=== PATIENT | female | born 1940 | race Caucasian/White ===

== ENCOUNTER 2016-12-01 11:57 | Emergency (ER) | payer MEDICARE, OTHER ==
--- NOTE | 2016-12-01 12:18 | EDM.PDOC ---
ED HPI GENERAL MEDICAL PROBLEM - General Chief Complaint: Cardiovascular Problem Stated Complaint: FAST HEARTBEAT Time Seen by Provider: 12/01/16 12:18 Source of Information: Reports: Patient History Limitations: Reports: No Limitations - History of Present Illness INITIAL COMMENTS - FREE TEXT/NARRATIVE: 76-year-old female from local intermediate sent over to the ED for evaluation of reported tachycardia. Apparently her resting heart rate was 110 this morning. In the ED the ECG showed it to be 101 in sinus and she settled well into the 90s very promptly after getting to rest. She claims that she's eating and drinking normally. No recent vomiting or pain response to elevate her heart rate. Medications are still being established that she's on but she denies any recent changes to her medicines. She denies feeling short of breath or dizzy. Onset: Today (Patient reports that she doesn't feel ill at all.) Duration: Minutes: Location: Reports: Other (Reportedly found to have an elevated heart rate at 110 per minute.) Severity: Mild Improves with: Reports: None Worsens with: Reports: None Context: Denies: Activity, Exercise, Lifting, Sick Contact, Trauma, Other - Related Data Allergies Allergy/AdvReac Type Severity Reaction Status Date / Time Sulfa (Sulfonamide Allergy Cannot Verified 12/01/16 12:09 Antibiotics) Remember Home Meds: Home Meds Acetaminophen [Tylenol] 650 mg PO QID 12/01/16 [History] Bisacodyl [Dulcolax] 10 mg PO DAILY PRN 12/01/16 [History] Capsaicin 42.5 gm TP BID 12/01/16 [History] Clotrimazole/Betamethasone Dip [Lotrisone Cream] 45 gm TP BID 12/01/16 [History] Diclofenac Sodium [Voltaren 1% Gel] 1 ampule TOP QID PRN 12/01/16 [History] Enalapril [Vasotec] 20 mg PO DAILY 12/01/16 [History] Hydrochlorothiazide 25 mg PO DAILY 12/01/16 [History] Ketoconazole [Ketoconazole 2%] 1 applic TOP DAILY 12/01/16 [History] Lactose-Reduced Food [Boost] 237 ml PO QID 12/01/16 [History] Memantine HCl [Namenda] 5 mg PO BID 12/01/16 [History] Miconazole Nitrate [Lotrimin AF] 150 gm TP BID PRN 12/01/16 [History] Potassium Chloride [Klor-Con M20] 20 meq PO DAILY 12/01/16 [History] Triamcinolone Acetonide 60 ml TP TID PRN 12/01/16 [History] Zinc Oxide 30 gm TP BID 12/01/16 [History] guaiFENesin [Tussin] 200 mg PO Q6H PRN 12/01/16 [History] Past Medical History Cardiovascular History: Reports: Hypertension Musculoskeletal History: Reports: Osteoarthritis, Osteoporosis Neurological History: Reports: Alzheimers Disease Social & Family History - Tobacco Use Smoking Status *Q: Former Smoker Years of Tobacco use: 60 Packs/Tins Daily: 1 Used Tobacco, but Quit: Yes Month Tobacco Last Used: 2 years ago - Caffeine Use Caffeine Use: Reports: Coffee - Recreational Drug Use Recreational Drug Use: No - Living Situation & Occupation Living situation: Reports: , Extended Care Facility (Lives at [facility]) Occupation: Retired ED ROS GENERAL - Review of Systems Review Of Systems: See Below Constitutional: Reports: Other (Patient doesn't really understand why she is here.). Denies: Fever, Chills, Malaise, Weakness, Fatigue, Decreased Appetite, Weight Loss HEENT: Reports: Glasses Respiratory: Denies: Shortness of Breath, Wheezing, Pleuritic Chest Pain, Cough , Sputum, Hemoptysis Cardiovascular: Reports: Blood Pressure Problem. Denies: Chest Pain, Claudication, Edema, Lightheadedness, Orthopnea (Controlled on current medications), Palpitations Endocrine: Reports: No Symptoms GI/Abdominal: Reports: Constipation (Sometimes) : Reports: Frequency Musculoskeletal: Reports: Back Pain, Joint Pain (Knees and hips at times.) Skin: Reports: No Symptoms Neurological: Reports: Confusion (Short-term memory is markedly impaired. She has underlying organic brain disease.). Denies: Trouble Speaking, Difficulty Walking, Weakness Psychiatric: Reports: Confusion (At times.) Hematologic/Lymphatic: Reports: No Symptoms Immunologic: Reports: No Symptoms ED EXAM, GENERAL - Physical Exam Exam: See Below Exam Limited By: Altered Mental Status (History obtained from her daughter primarily.) General Appearance: Alert, WD/WN ( It was quite evident within a few minutes that the patient has significant organic brain disease and doesn't understand why she is here.), No Apparent Distress Eye Exam: Bilateral Eye: Normal Inspection Throat/Mouth: Normal Inspection, Normal Lips, Normal Oropharynx, Other Head: Atraumatic, Normocephalic Neck: Normal Inspection, Supple, Non-Tender, Full Range of Motion Respiratory/Chest: No Respiratory Distress, Lungs Clear, Normal Breath Sounds, No Accessory Muscle Use Cardiovascular: Normal Peripheral Pulses, Regular Rate, Rhythm, No Edema, No Gallop, No JVD, No Murmur GI/Abdominal: Normal Bowel Sounds, Soft, Non-Tender, No Organomegaly, Other ( Slight tympany to percussion.) Back Exam: Normal Inspection, Full Range of Motion. No: CVA Tenderness (L), CVA Tenderness (R) Extremities: Normal Inspection, Normal Range of Motion, Non-Tender, No Pedal Edema Neurological: Alert, CN II-XII Intact. No: Oriented (Disoriented to time and place.) Psychiatric: Normal Affect, Normal Mood Skin Exam: Warm, Dry, Intact, Normal Color, No Rash EKG INTERPRETATION EKG Date: 12/01/16 Time: 12:10 Rhythm: other (Sinus tachycardia at 101 per minute.) Rate (beats/min): 101 [place]: normal P-wave: present QRS: normal ST-T: other (Diffuse early repolarization pattern.) QT: normal Course - Vital Signs Last Recorded V/S: Last Vital Signs Temp 36.7 C 12/01/16 12:13 Pulse 101 H 12/01/16 14:04 Resp 18 12/01/16 12:13 BP 150/87 H 12/01/16 14:04 Pulse Ox 94 L 12/01/16 12:13 Orthostatic Blood Pressure [ 140/86 Standing] Orthostatic Blood Pressure [ 157/87 Sitting] Orthostatic Blood Pressure [ 150/87 Supine] - Orders/Labs/Meds Orders: Active Orders 24 hr Category Date Time Status EKG Documentation Completion [RC] STAT Care 12/01/16 12:08 Active Orthostatic Vital Signs [RC] ASDIRECTED Care 12/01/16 12:29 Active Labs: Laboratory Tests 12/01/16 12/01/16 12/01/16 Range/Units 12:25 12:25 12:25 WBC 9.13 (3.98-10.04) K/mm3 RBC 4.45 (3.98-5.22) M/mm3 Hgb 13.8 (11.2-15.7) gm/L Hct 41.2 (34.1-44.9) % MCV 92.6 (79.4-94.8) fl MCH 31.0 (25.6-32.2) pg MCHC 33.5 (32.2-35.5) g/dl RDW Std Deviation 44.0 (36.4-46.3) fL Plt Count 363 (182-369) K/mm3 MPV 9.4 (9.4-12.3) fl Neutrophils % (Manual) 68 H (40-60) % Band Neutrophils % 0 (0-10) % Lymphocytes % (Manual) 24 (20-40) % Atypical Lymphs % 0 % Monocytes % (Manual) 7 (2-10) % Eosinophils % (Manual) 1 (0.7-5.8) % Basophils % (Manual) 0 L (0.1-1.2) Platelet Estimate Adequate RBC Morph Comment Normal Sodium 140 (136-145) mEq/L Potassium 4.4 (3.5-5.1) mEq/L Chloride 103 (98-107) mEq/L Carbon Dioxide 28 (21-32) mEq/L Anion Gap 13.4 (5-15) BUN 14 (7-18) mg/dL Creatinine 0.8 (0.55-1.02) mg/dL Est Cr Clr Drug Dosing 52.47 mL/min Estimated GFR (MDRD) > 60 (>60) mL/min BUN/Creatinine Ratio 17.5 (14-18) Glucose 97 (83-115) mg/dL Calcium 9.3 (8.5-10.1) mg/dL Magnesium 2.0 (1.8-2.4) mg/dl Total Bilirubin 0.5 (0.2-1.0) mg/dL AST 36 (15-37) U/L ALT 43 (14-59) U/L Alkaline Phosphatase 99 (46-116) U/L Total Protein 6.8 (6.4-8.2) g/dl Albumin 3.5 (3.4-5.0) g/dl Globulin 3.3 gm/dL Albumin/Globulin Ratio 1.1 (1-2) TSH 3rd Generation 0.735 (0.358-3.74) uIU/mL Meds: Medications Discontinued Medications Generic Name Dose Route Start Last Admin Trade Name Mal PRN Reason Stop Dose Admin Sodium Chloride 500 mls @ 500 mls/hr 12/01/16 12:38 12/01/16 12:43 Normal Saline IV 12/01/16 13:37 500 mls/hr .BOLUS ONE Administration - Radiology Interpretation Free Text/Narrative:: 36-year-old female presents to the ED for evaluation of resting heart rate of 110 per minute. Unsure where this came from. Heart rate here was 101 per minute. Orthostatic BPs are positive with the rate of 126/84 supine with a rate of 94 sitting BP was 117/89 with heart rate of 100 standing was 116/82 with a heart rate of 113 suggesting that she is volume depleted. Plan routine labs will be collected. IV will be normal saline with a 500 mils fluid bolus over the next hour. - Re-Assessments/Exams Free Text/Narrative Re-Assessment/Exam: 12/01/16 14:21 labs are back and essentially are normal. White count was 9.13 with 60% neutrophils and no bands hemoglobin 13.8 hematocrit 41.2 platelets 3 63 ,000. Sodium is 140 potassium is 4.4 the remainder of the electrolytes were normal as as worsening renal function and liver function TSH was 0.735. It appears that she was is mildly volume depleted didn't have precipitated a sinus tachycardia and perhaps a bit excited or anxious due to the [place] being made over her. He was however it is orthostatic and is no longer orthostatic after 500 mils of fluid IV. BP now is 150/87 with a heart rate of 102 sitting was 157/ 87. To be discharged to home or in the care of her daughter will take her back to [facility]. No changes to medications made at this time. Departure - Departure Time of Disposition: 14:14 Disposition: Home, Self-Care 01 Condition: good Clinical Impression: Volume depletion Referrals: Cain Fair MD [Primary Care Provider] - Forms: ED Department Discharge Additional Instructions: Evaluation in the emergency today in regards to discovery of a fast heartbeat. Examination revealed this to be in normal sinus rhythm at 101 per minute but apparently was tracked earlier at 110 per minute. Identified that there was evidence of orthostatic hypotension meaning that blood pressure dropped when used it up instead of normally it goes up to fight off the effect of gravity. This indicated that you're a little short of fluids and this was confirmed by lab tests but no other major abnormalities were identified on lab testing including normal thyroid function. Therefore this time no changes to medications are to be made. Tried taking a bit more fluids during the day to keep your blood pressure up. - My Orders Last 24 Hours: My Active Orders 12/01/16 12:08 EKG Documentation Completion [RC] STAT 12/01/16 12:29 Orthostatic Vital Signs [RC] ASDIRECTED - Assessment/Plan Last 24 Hours: My Active Orders 12/01/16 12:08 EKG Documentation Completion [RC] STAT 12/01/16 12:29 Orthostatic Vital Signs [RC] ASDIRECTED
[2016-12-01] MEDS ORDERED: Sodium Chloride 0.9% 500 ML IV ONE (12:38)
[2016-12-01 14:07] VITALS: BP 150/87
== END 2016-12-01 14:45 | disposition home or self-care (01) ==
LOC: JD.ED 11:57
DX: E86.9 Volume depletion, unspecified (principal); I10 Essential (primary) hypertension; M19.90 Unspecified osteoarthritis, unspecified site; G30.9 Alzheimer's disease, unspecified; F02.80 Dementia in other diseases classified elsewhere, unspecified severity, without behavioral disturbance, psychotic disturbance, mood disturbance, and anxiety; Z88.2 Allergy status to sulfonamides; Z79.899 Other long term (current) drug therapy; Z87.891 Personal history of nicotine dependence
CPT/HCPCS: 36415; 80053; 83735; 84443; 85025; 93005; 96360; 99285; J7040; 99283

== ENCOUNTER 2018-01-10 09:02 | Emergency (ER) | payer MEDICARE, MEDICAID ==
--- NOTE | 2018-01-10 09:38 | EDM.PDOC ---
ED HPI GENERAL MEDICAL PROBLEM - General Chief Complaint: Cardiovascular Problem Stated Complaint: TEMP,TACHYCARDIA AND UNABLE TO WALK Time Seen by Provider: 01/10/18 09:20 Source of Information: Reports: [facility] ([facility]), RN History Limitations: Reports: Altered Mental Status (Dementia) - History of Present Illness INITIAL COMMENTS - FREE TEXT/NARRATIVE: The patient is sent from [facility] with report that she is generally weak this morning. Ordinarily the patient is independent, but today it took 2 to transfer her. She is hemodynamically stable, afebrile. It is unknown if patient has had similar symptoms in the past. Here in the ED, the patient states that she is here for a cough. The patient's PCP is Dr. Fair - Related Data Allergies Allergy/AdvReac Type Severity Reaction Status Date / Time Sulfa (Sulfonamide Allergy Cannot Verified 01/10/18 09:14 Antibiotics) Remember Home Meds: Home Meds Acetaminophen [Tylenol] 650 mg PO QID 12/01/16 [History] Bisacodyl [Dulcolax] 10 mg PO DAILY PRN 12/01/16 [History] Capsaicin 1 applic TP BID 12/01/16 [History] Diclofenac Sodium [Voltaren 1% Gel] 1 applic TOP Q6HR PRN 12/01/16 [History] Enalapril [Vasotec] 20 mg PO DAILY 12/01/16 [History] Hydrochlorothiazide 25 mg PO DAILY 12/01/16 [History] Lactose-Reduced Food [Boost] 4 oz PO TID 12/01/16 [History] Potassium Chloride [Klor-Con M20] 20 meq PO DAILY 12/01/16 [History] Zinc Oxide 30 gm TP BID 12/01/16 [History] ARIPiprazole [Abilify] 5 mg PO DAILY 01/10/18 [History] Donepezil HCl [Aricept] 10 mg PO BID 01/10/18 [History] LORazepam [Ativan] 0.5 mg PO BID 01/10/18 [History] Nut Tx, Lact-Reduced, Iron [Boost VHC] 4 oz PO BID 01/10/18 [History] Sertraline HCl [Zoloft] 50 mg PO BEDTIME 01/10/18 [History] Past Medical History HEENT History: Reports: Other (See Below) Other HEENT History: wears glasses Cardiovascular History: Reports: Hypertension Musculoskeletal History: Reports: Osteoarthritis, Osteoporosis Neurological History: Reports: Alzheimers Disease - Infectious Disease History Infectious Disease History: Reports: Chicken Pox Social & Family History - Family History Family Medical History: Noncontributory - Tobacco Use Smoking Status *Q: Unknown Ever Smoked - Caffeine Use Caffeine Use: Reports: Coffee - Recreational Drug Use Recreational Drug Use: No - Living Situation & Occupation Living situation: Reports: , Extended Care Facility (Lives at [facility]) Occupation: Retired ED ROS GENERAL - Review of Systems Review Of Systems: ROS reveals no pertinent complaints other than HPI. ED EXAM, GENERAL - Physical Exam Exam: See Below Exam Limited By: No Limitations General Appearance: Alert, WD/WN, No Apparent Distress, Other (The patient coughed a few times during my examination) Eye Exam: Bilateral Eye: Normal Inspection Ears: Normal External Exam, Hearing Grossly Normal Nose: Normal Inspection, No Blood Throat/Mouth: Normal Inspection, Normal Lips, Normal Voice, No Airway Compromise Head: Atraumatic, Normocephalic Neck: Normal Inspection, Full Range of Motion Respiratory/Chest: No Respiratory Distress, No Accessory Muscle Use, Other (The patient did not take deep breaths as requested, therefore the lung exam was limited. Possible bibasilar crackles, more on the right than the left. No rhonchi or wheezing heard.) Cardiovascular: Normal Peripheral Pulses, Regular Rate, Rhythm, No Edema, No Gallop, No JVD, No Murmur, No Rub Peripheral Pulses: 4+: Radial (L), Radial (R) GI/Abdominal: Normal Bowel Sounds, Soft, Non-Tender, No Organomegaly, No Distention, No Abnormal Bruit, No Mass (Female) Exam: Deferred Rectal (Female) Exam: Deferred Back Exam: Normal Inspection, Full Range of Motion, NT Extremities: Normal Inspection, Normal Range of Motion, No Pedal Edema, Normal Capillary Refill Neurological: Alert, No Motor/Sensory Deficits Psychiatric: Normal Affect Skin Exam: Warm, Dry, Intact, Normal Color, No Rash EKG INTERPRETATION EKG Date: 01/10/18 Time: 09:43 Rhythm: NSR Rate (Beats/Min): 79 [place]: Normal P-Wave: Present QRS: Normal ST-T: Normal QT: Normal Comparison: Change From Previous EKG (Only change from 12/01/16 = rate - previously was tachycardic) Course - Vital Signs Last Recorded V/S: Last Vital Signs Temp 36.6 C 01/10/18 09:09 Pulse 77 01/10/18 09:09 Resp 18 01/10/18 09:09 BP 122/70 01/10/18 09:09 Pulse Ox 93 L 01/10/18 09:09 Orthostatic Blood Pressure [ 117/72 Sitting] Orthostatic Blood Pressure [ 127/72 Supine] - Orders/Labs/Meds Orders: Active Orders 24 hr Category Date Time Status EKG Documentation Completion [RC] STAT Care 01/10/18 09:30 Active Orthostatic Vital Signs [RC] STAT Care 01/10/18 09:30 Active Chest 1V Frontal [CR] Stat Exams 01/10/18 09:29 Taken UA W/MICROSCOPIC [URIN] Stat Lab 01/10/18 09:30 Ordered Labs: Laboratory Tests 01/10/18 01/10/18 01/10/18 Range/Units 09:30 09:55 09:55 WBC 7.11 (3.98-10.04) K/mm3 RBC 4.51 (3.98-5.22) M/mm3 Hgb 14.2 (11.2-15.7) gm/L Hct 43.0 (34.1-44.9) % MCV 95.3 H (79.4-94.8) fl MCH 31.5 (25.6-32.2) pg MCHC 33.0 (32.2-35.5) g/dl RDW Std Deviation 43.6 (36.4-46.3) fL Plt Count 312 (182-369) K/mm3 MPV 9.5 (9.4-12.3) fl Neutrophils % (Manual) 80 H (40-60) % Band Neutrophils % 0 (0-10) % Lymphocytes % (Manual) 15 L (20-40) % Atypical Lymphs % 0 % Monocytes % (Manual) 5 (2-10) % Eosinophils % (Manual) 0 L (0.7-5.8) % Basophils % (Manual) 0 L (0.1-1.2) Platelet Estimate Adequate Poikilocytosis 1+ slight Anisocytosis 1+ slight RBC Morph Comment Not Reportable Sodium 139 (136-145) mEq/L Potassium 3.9 (3.5-5.1) mEq/L Chloride 103 (98-107) mEq/L Carbon Dioxide 28 (21-32) mEq/L Anion Gap 11.9 (5-15) BUN 19 H (7-18) mg/dL Creatinine 0.9 (0.55-1.02) mg/dL Est Cr Clr Drug Dosing 45.92 mL/min Estimated GFR (MDRD) > 60 (>60) mL/min BUN/Creatinine Ratio 21.1 H (14-18) Glucose 91 (83-115) mg/dL Calcium 9.2 (8.5-10.1) mg/dL Magnesium (1.8-2.4) mg/dl Total Bilirubin 0.6 (0.2-1.0) mg/dL AST 30 (15-37) U/L ALT 30 (14-59) U/L Alkaline Phosphatase 66 (46-116) U/L Troponin I < 0.017 (0.00-0.056) ng/mL Total Protein 7.1 (6.4-8.2) g/dl Albumin 3.5 (3.4-5.0) g/dl Globulin 3.6 gm/dL Albumin/Globulin Ratio 1.0 (1-2) Urine Color Yellow (Yellow) Urine Appearance Clear (Clear) Urine pH 6.5 (5.0-8.0) Ur Specific [place] 1.025 (1.005-1.030) Urine Protein Negative (Negative) Urine Glucose (UA) Negative (Negative) Urine Ketones 1+ H (Negative) Urine Occult Blood Negative (Negative) Urine Nitrite Negative (Negative) Urine Bilirubin Negative (Negative) Urine Urobilinogen 0.2 (0.2-1.0) Ur Leukocyte Esterase Negative (Negative) Urine RBC 0-5 (0-5) /hpf Urine WBC 0-5 (0-5) /hpf Ur Epithelial Cells 0-5 (0-5) /hpf Urine Bacteria Few (FEW) /hpf Urine Mucus Not seen (FEW) /hpf 01/10/18 Range/Units 09:55 WBC (3.98-10.04) K/mm3 RBC (3.98-5.22) M/mm3 Hgb (11.2-15.7) gm/L Hct (34.1-44.9) % MCV (79.4-94.8) fl MCH (25.6-32.2) pg MCHC (32.2-35.5) g/dl RDW Std Deviation (36.4-46.3) fL Plt Count (182-369) K/mm3 MPV (9.4-12.3) fl Neutrophils % (Manual) (40-60) % Band Neutrophils % (0-10) % Lymphocytes % (Manual) (20-40) % Atypical Lymphs % % Monocytes % (Manual) (2-10) % Eosinophils % (Manual) (0.7-5.8) % Basophils % (Manual) (0.1-1.2) Platelet Estimate Poikilocytosis Anisocytosis RBC Morph Comment Sodium (136-145) mEq/L Potassium (3.5-5.1) mEq/L Chloride (98-107) mEq/L Carbon Dioxide (21-32) mEq/L Anion Gap (5-15) BUN (7-18) mg/dL Creatinine (0.55-1.02) mg/dL Est Cr Clr Drug Dosing mL/min Estimated GFR (MDRD) (>60) mL/min BUN/Creatinine Ratio (14-18) Glucose (83-115) mg/dL Calcium (8.5-10.1) mg/dL Magnesium 1.9 (1.8-2.4) mg/dl Total Bilirubin (0.2-1.0) mg/dL AST (15-37) U/L ALT (14-59) U/L Alkaline Phosphatase (46-116) U/L Troponin I (0.00-0.056) ng/mL Total Protein (6.4-8.2) g/dl Albumin (3.4-5.0) g/dl Globulin gm/dL Albumin/Globulin Ratio (1-2) Urine Color (Yellow) Urine Appearance (Clear) Urine pH (5.0-8.0) Ur Specific [place] (1.005-1.030) Urine Protein (Negative) Urine Glucose (UA) (Negative) Urine Ketones (Negative) Urine Occult Blood (Negative) Urine Nitrite (Negative) Urine Bilirubin (Negative) Urine Urobilinogen (0.2-1.0) Ur Leukocyte Esterase (Negative) Urine RBC (0-5) /hpf Urine WBC (0-5) /hpf Ur Epithelial Cells (0-5) /hpf Urine Bacteria (FEW) /hpf Urine Mucus (FEW) /hpf - Re-Assessments/Exams Free Text/Narrative Re-Assessment/Exam: 01/10/18 09:51 Due to the patient's general condition, she was not stood, however, between supine and sitting, the patient is not orthostatic. 01/10/18 10:07 Portable chest radiograph reviewed. Poor inspiratory effort limits interpretation. Very limited cardiac silhouette visible, but what is seen appears to be within normal limits. No pulmonary vascular congestion. No pleural effusions seen. No focal infiltrate. No pneumothorax. Scoliosis incidentally noted. Formal read per the radiologist pending. 01/10/18 10:50 Test results discussed with the patient's [id number], who is at the bedside. Today's workup is entirely unremarkable. There is no evidence of an infection, either pneumonia or UTI. No recent CO. No anemia, dehydration, or electrolyte abnormalities. The patient will be returned to [facility], to follow-up with her PCP. Departure - Departure Time of Disposition: 10:51 Disposition: Home, Self-Care 01 Condition: Good Clinical Impression: Generalized weakness Referrals: Cain Fair MD [Primary Care Provider] - Forms: ED Department Discharge Additional Instructions: Ms. Arechiga was seen in the emergency room for generalized weakness. Workup in the ER included blood work, a urinalysis, positional blood pressure checks, a chest x-ray, and an ECG. Her entire workup was unremarkable, and does not explain the cause of her generalized weakness. No indication for admission to the hospital was found, therefore she is being returned to [facility]. If her symptoms persist, please have her follow-up with her PCP, Dr. Fair. If any other problems, please do not hesitate to return Ms. Arechiga to the ER. - My Orders Last 24 Hours: My Active Orders 01/10/18 09:29 Chest 1V Frontal [CR] Stat 01/10/18 09:30 EKG Documentation Completion [RC] STAT Orthostatic Vital Signs [RC] STAT UA W/MICROSCOPIC [URIN] Stat - Assessment/Plan Last 24 Hours: My Active Orders 01/10/18 09:29 Chest 1V Frontal [CR] Stat 01/10/18 09:30 EKG Documentation Completion [RC] STAT Orthostatic Vital Signs [RC] STAT UA W/MICROSCOPIC [URIN] Stat
[2018-01-10 12:45] VITALS: BP 126/58
--- NOTE | 2018-01-10 15:48 | CR ---
Chest: Frontal view of the chest was obtained. Comparison: Prior chest x-ray of 09/19/13. Heart size is normal. Tortuous thoracic aorta is seen. Lungs are clear with no acute parenchymal densities. Scoliosis is noted within the spine. Bony structures are osteopenic. Impression: 1. Nothing acute is seen on frontal chest x-ray. Diagnostic code #1
== END 2018-01-10 12:16 | disposition home or self-care (01) ==
LOC: JD.ED 09:02
DX: R53.1 Weakness (principal); I10 Essential (primary) hypertension; Z88.2 Allergy status to sulfonamides; Z79.899 Other long term (current) drug therapy
CPT/HCPCS: 36415; 71045; 71045-26; 80053; 81001; 83735; 84484; 85007; 85027; 93005; 99285-25

== ENCOUNTER 2018-01-11 11:25 | Emergency (ER) | payer MEDICARE, MEDICAID ==
[2018-01-11 11:42] VITALS: BP 115/63
--- NOTE | 2018-01-11 12:26 | EDM.PDOC ---
ED HPI GENERAL MEDICAL PROBLEM - General Chief Complaint: Neurological Problem Stated Complaint: NEUROLOGICAL PROBLEMS Time Seen by Provider: 01/11/18 11:55 Source of Information: Reports: Patient (minimal information), Snf Records History Limitations: Reports: Altered Mental Status - History of Present Illness INITIAL COMMENTS - FREE TEXT/NARRATIVE: Alice is a 77yo female patient from [facility] who is sent to ED for evaluation today for altered mental status. She was seen yesterday for similar complaints in the ER by Dr. Cox. Evaluation was negative at that time and included CBC , CMP, UA, troponin, CXR and EKG. Patient herself is not able to tell me why she is here. "I feel perfectly fine" . States she [place]in [place]" when in fact she lives at [facility]. She has hx of dementia. No one is with her at time of my exam. She is resting comfortably. - Related Data Allergies Allergy/AdvReac Type Severity Reaction Status Date / Time Sulfa (Sulfonamide Allergy Cannot Verified 01/11/18 11:38 Antibiotics) Remember Home Meds: Home Meds Acetaminophen [Tylenol] 650 mg PO QID 12/01/16 [History] Bisacodyl [Dulcolax] 10 mg PO DAILY PRN 12/01/16 [History] Capsaicin 1 applic TP BID 12/01/16 [History] Enalapril [Vasotec] 20 mg PO DAILY 12/01/16 [History] Hydrochlorothiazide 25 mg PO DAILY 12/01/16 [History] Potassium Chloride [Klor-Con M20] 20 meq PO DAILY 12/01/16 [History] Zinc Oxide 30 gm TP BID 12/01/16 [History] Donepezil HCl [Aricept] 10 mg PO BID 01/10/18 [History] LORazepam [Ativan] 0.25 mg PO BID 01/10/18 [History] Nut Tx, Lact-Reduced, Iron [Boost VHC] 4 oz PO BID 01/10/18 [History] Sertraline HCl [Zoloft] 50 mg PO BEDTIME 01/10/18 [History] ARIPiprazole [Abilify] 5 mg PO DAILY 01/11/18 [History] Past Medical History HEENT History: Reports: Other (See Below) Other HEENT History: wears glasses Cardiovascular History: Reports: Hypertension Musculoskeletal History: Reports: Osteoarthritis, Osteoporosis Other Musculoskeletal History: tinea pedis- bilateral feet; generalized muscle weakness; Neurological History: Reports: Alzheimers Disease Psychiatric History: Reports: Alzheimers Disease, Dementia - Infectious Disease History Infectious Disease History: Reports: Chicken Pox Social & Family History - Family History Family Medical History: Noncontributory - Tobacco Use Smoking Status *Q: Unknown Ever Smoked - Caffeine Use Caffeine Use: Reports: None - Recreational Drug Use Recreational Drug Use: No - Living Situation & Occupation Living situation: Reports: , Extended Care Facility (Lives at [facility]) Occupation: Retired ED ROS GENERAL - Review of Systems Review Of Systems: See Below (patient with dementia, unable to answer questions "I don't know why I am here", "I feel fine".) ED EXAM, NEURO - Physical Exam Exam: See Below Exam Limited By: Altered Mental Status (pleasant but unable to answer some questions appropriately, thinks she is in and lives in [place].) General Appearance: Alert, WD/WN, No Apparent Distress Eye Exam: Bilateral Eye: EOMI, PERRL Ears: Normal External Exam, Hearing Grossly Normal Nose: Normal Inspection, Normal Mucosa Throat/Mouth: Normal Inspection, Normal Lips, Normal Oropharynx, Normal Voice, No Airway Compromise Head Exam: Atraumatic, Normocephalic Neck: Normal Inspection, Supple. No: Carotid Bruit Respiratory/Chest: No Respiratory Distress, Lungs Clear, Normal Breath Sounds Cardiovascular: Normal Peripheral Pulses, Regular Rate, Rhythm, No Edema, No Murmur GI/Abdominal: Normal Bowel Sounds, Soft, Non-Tender (Female) Exam: Deferred Rectal (Female) Exam: Deferred Neurological: Alert, Normal Mood/Affect (pleasant, talkative), Normal Dorsiflexion, CN II-XII Intact, Normal Plantar Flexion, No Motor/Sensory Deficits. No: Oriented x 3 (A&O x 1-2 and with dementia) DTR: 2+: Patella (R), Patella (L) Back Exam: Normal Inspection Extremities: Normal Inspection, No Pedal Edema, Normal Capillary Refill Psychiatric: Normal Affect, Normal Mood, Other (dementia, A&O x 1-2) Skin Exam: Warm, Dry, Intact Course - Vital Signs Last Recorded V/S: Last Vital Signs Temp 98.9 F 01/11/18 11:39 Pulse 58 L 01/11/18 11:39 Resp 17 01/11/18 11:39 BP 115/63 01/11/18 11:39 Pulse Ox 95 01/11/18 11:39 - Orders/Labs/Meds Orders: Active Orders 24 hr Category Date Time Status Orthostatic Vital Signs [RC] ASDIRECTED Care 01/11/18 12:26 Active Head wo Cont [CT] Stat Exams 01/11/18 12:26 Taken - Radiology Interpretation CT Results Date: 01/11/18 ([facility] report with 1- moderate white matter hypoattenuation suggestive of chronic small vessel ischemic demyelination. 2. No intracranial mass effect, hemorrhage or acute large territory infarct) - Re-Assessments/Exams Free Text/Narrative Re-Assessment/Exam: 01/11/18 13:25 Patient's [id number] present in room, arrived after patient returned from CT. States she seems like "her usual self". Patient is very alert and talkative. Review Head CT results with patient and family, no acute findings. Normal labs, EKG, CXR yesterday with no need to repeat today. Reassurance provided. Recommend follow up with Dr. Fair to recheck within the next few days, sister-in -law states appt is scheduled for this week, 01/13/18. [id number] brings up possibility of recent increased dose of abilify contributing. This could certainly be a possibility. As patient has f/up in 2 days, review with family that I will defer dose adjustment until seen by PCP. Departure - Departure Time of Disposition: 13:39 Disposition: DC/[facility] to [facility] Condition: Good Clinical Impression: Altered mental status Qualifiers: Altered mental status type: disorientation Qualified Code(s): R41.0 - Disorientation, unspecified Dementia Qualifiers: Dementia type: Alzheimer's disease - Discharge Information *PRESCRIPTION DRUG MONITORING PROGRAM REVIEWED*: Not Applicable Instructions: Dementia Caregiver Guide, Alzheimer Disease, Altered Mental Status Referrals: Cain Fair MD [Primary Care Provider] - Forms: ED Department Discharge Additional Instructions: Normal neurologic exam today upon arrival to ER other than unsure of where she was or why she was here. Labs, xrays and EKG obtained yesterday reviewed and essentially unremarkable. VSS during ER stay. Head CT obtained and is without acute findings/concerns. Consider Abilify dosage increase, as reported by family, as contributing factor/ etiology to weakness and ongoing neurologic concerns. Recommend push fluids and follow up as previously scheduled with Dr. Fair on 01/13/18. - My Orders Last 24 Hours: My Active Orders 01/11/18 12:26 Orthostatic Vital Signs [RC] ASDIRECTED Head wo Cont [CT] Stat - Assessment/Plan Last 24 Hours: My Active Orders 01/11/18 12:26 Orthostatic Vital Signs [RC] ASDIRECTED Head wo Cont [CT] Stat
--- NOTE | 2018-01-11 14:53 | CT ---
Head CT Technique: Multiple axial sections through the brain were obtained. Intravenous contrast was not utilized. Comparison: Previous MRI brain dated 03/02/12. Findings: Ventricles along with basal cisterns and sulci over the convexities are moderately prominent. Diminished density is noted within the periventricular and subcortical white matter compatible with small vessel ischemic demyelination change. Old lacunar infarct is noted within the right basal ganglia. No other abnormal parenchymal densities are seen. Calcification is seen within the posterior fossa believed to be within the cerebellar tentorium. No evidence of intracranial hemorrhage. No midline shift or mass effect is seen. Bone window settings were reviewed which show the visualized sinuses to appear clear. No acute calvarial abnormality is appreciated. Impression: 1. Senescent change as noted above. No acute intracranial abnormality is identified. Diagnostic code #2 I agree with preliminary report issued by [facility] ([facility] preliminary report dictated on 01/11/18, 1:52 PM Central Time)
== END 2018-01-11 14:16 ==
LOC: JD.ED 11:25
DX: R41.0 Disorientation, unspecified (principal); G30.9 Alzheimer's disease, unspecified; F02.80 Dementia in other diseases classified elsewhere, unspecified severity, without behavioral disturbance, psychotic disturbance, mood disturbance, and anxiety; I10 Essential (primary) hypertension; Z88.2 Allergy status to sulfonamides; Z79.899 Other long term (current) drug therapy
CPT/HCPCS: 70450; 70450-26; 99284; 99285-25

== ENCOUNTER 2018-11-04 09:34 | Emergency (ER) | payer MEDICARE, MEDICAID ==
[2018-11-04 09:44] VITALS: BP 118/73
--- NOTE | 2018-11-04 09:56 | EDM.PDOC ---
ED HPI GENERAL MEDICAL PROBLEM - General Chief Complaint: Fever Stated Complaint: [facility] Time Seen by Provider: 11/04/18 09:51 Source of Information: Reports: Care Home Records History Limitations: Reports: Altered Mental Status (Patient suffers from severe dementia. She tends to hit out and kick.), Uncooperative - History of Present Illness INITIAL COMMENTS - FREE TEXT/NARRATIVE: Sent to the ED for evaluation of fever. Temperature is 99.9 rectally. She is prone to urinary tract infections but they have not been able to obtain a urine analysis due to her behavioral issues from dementia. No history of nausea or vomiting. It's unclear how much she's been eating or drinking as of late. She did take her medications this morning as per usual. She is very cooperative with examination punching and kicking at staff including myself. Apparently she did have Tylenol 650 mg at 0630 hrs. this morning. No history of cough. Does have a history of recurrent urinary tract infections. No skin breakdown appreciated. Note O2 sats recorded at 88% by pulse oximetry etc. unclear if this is accurate as she won't hold still. Once we did get her to hold still sats were 95-96% on room air. Onset: Sudden Onset Date: 11/03/18 (Spiked a fever last night.) Duration: Hour(s): Location: Reports: Generalized (Acute febrile illness.) Quality: Reports: Other (Acute febrile illness with possible exacerbation of dementia and behavioral problems.) Severity: Moderate Improves with: Reports: None Worsens with: Reports: None Context: Denies: Activity, Exercise, Lifting, Sick Contact, Trauma, Other Associated Symptoms: Reports: Confusion, Fever/Chills (None0.9 rectally), Loss of Appetite. 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 this morning) - Related Data Allergies Allergy/AdvReac Type Severity Reaction Status Date / Time Sulfa (Sulfonamide Allergy Cannot Verified 11/04/18 09:43 Antibiotics) Remember Home Meds: Home Meds Acetaminophen [Tylenol] 650 mg PO TID 12/01/16 [History] Bisacodyl [Dulcolax] 10 mg PO DAILY PRN 12/01/16 [History] Capsaicin 1 applic TP BID 12/01/16 [History] Enalapril [Vasotec] 20 mg PO DAILY 12/01/16 [History] Hydrochlorothiazide 25 mg PO DAILY 12/01/16 [History] Potassium Chloride [Klor-Con M20] 20 meq PO DAILY 12/01/16 [History] Zinc Oxide 30 gm TP BID 12/01/16 [History] Donepezil HCl [Aricept] 10 mg PO BID 01/10/18 [History] LORazepam [Ativan] 1 mg PO BID PRN 01/10/18 [History] Nut Tx, Lact-Reduced, Iron [Boost VHC] 4 oz PO BID 01/10/18 [History] Sertraline HCl [Zoloft] 75 mg PO BEDTIME 01/10/18 [History] Cefdinir [Omnicef 250 MG/5 ML Susp] 250 mg PO BID #100 ml 11/04/18 [Rx] Diclofenac Sodium [Voltaren 1% Gel] 2 gm TOP Q6H PRN 11/04/18 [History] QUEtiapine [SEROquel] 25 mg PO BID 11/04/18 [History] QUEtiapine [SEROquel] 25 mg PO Q6H PRN 11/04/18 [History] Terbinafine [LamISIL AT 1% Crm] 1 applic TOP BID 11/04/18 [History] Past Medical History HEENT History: Reports: Other (See Below) Other HEENT History: wears glasses Cardiovascular History: Reports: Hypertension Musculoskeletal History: Reports: Osteoarthritis, Osteoporosis Other Musculoskeletal History: tinea pedis- bilateral feet; generalized muscle weakness; Neurological History: Reports: Alzheimers Disease (With behavioral problems. She likes to hit out and kick.) Psychiatric History: Reports: Alzheimers Disease, Dementia - Infectious Disease History Infectious Disease History: Reports: Chicken Pox Social & Family History - Family History Family Medical History: Noncontributory - Caffeine Use Caffeine Use: Reports: None - Living Situation & Occupation Living situation: Reports: , Extended Care Facility (Lives at [facility]) Occupation: Retired ED ROS GENERAL - Review of Systems Review Of Systems: See Below Constitutional: Reports: Fever, Decreased Appetite HEENT: Reports: Glasses Respiratory: Reports: No Symptoms Cardiovascular: Reports: No Symptoms Endocrine: Reports: No Symptoms GI/Abdominal: Reports: No Symptoms : Reports: Other (Urine apparently smells quite strongly.) Musculoskeletal: Reports: Joint Pain Skin: Reports: No Symptoms (Knees hips back and neck at times) Neurological: Reports: Confusion, Other (Patient is completely disoriented to person place and time due to severe dementia.) Psychiatric: Reports: Confusion, Mood Lability Hematologic/Lymphatic: Reports: No Symptoms Immunologic: Reports: No Symptoms ED EXAM, GENERAL - Physical Exam Exam: See Below Exam Limited By: Altered Mental Status (Severe dementia.) General Appearance: Alert, Other (Does feel what mildly warm to palpation. She is quite agitated and has to be held down to prevent her from hitting out at staff particularly with her right arm and she did kick me with her right leg.) Eye Exam: Bilateral Eye: Normal Inspection (No scleral icterus.) Throat/Mouth: Other Head: Atraumatic (Tongue is mildly dry and coated), Normocephalic Neck: Normal Inspection Respiratory/Chest: No Respiratory Distress, Lungs Clear, Normal Breath Sounds, No Accessory Muscle Use, Chest Non-Tender. No: Rhonchi, Wheezing Cardiovascular: Normal Peripheral Pulses, Regular Rate, Rhythm, No Edema, No Gallop, No Murmur, No Rub Peripheral Pulses: 2+: Posterior Tibial (L), Posterior Tibial (R), Dorsalis Pedis (L), Dorsalis Pedis (R) GI/Abdominal: Normal Bowel Sounds, Soft, Non-Tender, No Organomegaly, No Abnormal Bruit, No Mass, Pelvis Stable Back Exam: Normal Inspection, Full Range of Motion, Other (She really couldn't appreciate any pain in her costovertebral angles on examination.) Extremities: Normal Inspection, Normal Range of Motion, Non-Tender, Other Neurological: Other. No: Oriented, Normal Cognition (Moves all limbs without any focal neurological deficit.) Psychiatric: Other (Aggressive and agitated.) Skin Exam: Warm, Dry, Intact, Normal Color, No Rash EKG INTERPRETATION EKG Date: 11/04/18 Time: 10:00 Rhythm: NSR Rate (Beats/Min): 90 [place]: Normal P-Wave: Enlarged (Likely left atrial hypertrophy) QRS: Other (There is early R-wave transition suggesting right ventricular hypertrophy versus septal hypertrophy pattern) QT: Prolonged EKG Interpretation Comments: Abnormal ECG Course - Vital Signs Last Recorded V/S: Last Vital Signs Temp 37.7 C 11/04/18 10:00 Pulse 93 11/04/18 09:39 Resp 18 11/04/18 09:39 BP 118/73 11/04/18 09:39 Pulse Ox 88 L 11/04/18 09:39 - Orders/Labs/Meds Orders: Active Orders 24 hr Category Date Time Status EKG Documentation Completion [RC] STAT Care 11/04/18 09:57 Active CULTURE BLOOD [BC] Stat Lab 11/04/18 10:11 Received CULTURE BLOOD [BC] Stat Lab 11/04/18 10:16 Received CULTURE URINE [RM] Stat Lab 11/04/18 11:26 Ordered Acetaminophen [Tylenol] Med 11/04/18 13:02 Once 650 mg PO ONETIME ONE Dextrose 5%-0.9% NaCl [Dextrose 5%-Normal Saline] 1,000 Med 11/04/18 11:30 Active ml IV ASDIRECTED cefTRIAXone [Rocephin] 2 gm Med 11/04/18 11:30 Active Sodium Chloride 0.9% [Normal Saline] 100 ml IV Q24H Blood Culture x2 Reflex Set [OM.PC] Stat Oth 11/04/18 09:57 Ordered Medication Orders Acetaminophen (Tylenol) 650 mg PO ONETIME ONE Stop: 11/04/18 13:03 Ceftriaxone Sodium 2 gm/ (Sodium Chloride) 100 mls @ 200 mls/hr IV Q24H [facility] Last Admin: 11/04/18 11:36 Dose: 200 mls/hr Dextrose/Sodium Chloride (Dextrose 5%-Normal Saline) 1,000 mls @ 500 mls/hr IV ASDIRECTED [facility] Last Admin: 11/04/18 11:36 Dose: 500 mls/hr Labs: Laboratory Tests 11/04/18 11/04/18 11/04/18 Range/Units 09:50 10:11 10:11 WBC 19.86 H (3.98-10.04) K/mm3 RBC 3.98 (3.98-5.22) M/mm3 Hgb 12.3 D (11.2-15.7) gm/L Hct 38.3 (34.1-44.9) % MCV 96.2 H (79.4-94.8) fl MCH 30.9 (25.6-32.2) pg MCHC 32.1 L (32.2-35.5) g/dl RDW Std Deviation 43.4 (36.4-46.3) fL Plt Count 308 (182-369) K/mm3 MPV 10.6 (9.4-12.3) fl Neutrophils % (Manual) 88 H (40-60) % Band Neutrophils % 0 (0-10) % Lymphocytes % (Manual) 3 L (20-40) % Atypical Lymphs % 0 % Monocytes % (Manual) 9 (2-10) % Eosinophils % (Manual) 0 L (0.7-5.8) % Basophils % (Manual) 0 L (0.1-1.2) Platelet Estimate Adequate RBC Morph Comment Normal Sodium 145 (136-145) mEq/L Potassium 3.2 L (3.5-5.1) mEq/L Chloride 106 (98-107) mEq/L Carbon Dioxide 26 (21-32) mEq/L Anion Gap 16.2 H (5-15) BUN 42 H (7-18) mg/dL Creatinine 1.0 (0.55-1.02) mg/dL Est Cr Clr Drug Dosing 40.68 mL/min Estimated GFR (MDRD) 54 (>60) mL/min BUN/Creatinine Ratio 42.0 H (14-18) Glucose 106 (83-115) mg/dL Lactic Acid (0.4-2.0) mmol/L Calcium 9.1 (8.5-10.1) mg/dL Magnesium 2.2 (1.8-2.4) mg/dl Total Bilirubin 0.7 (0.2-1.0) mg/dL AST 25 (15-37) U/L ALT 51 (14-59) U/L Alkaline Phosphatase 70 (46-116) U/L Troponin I < 0.017 (0.00-0.056) ng/mL C-Reactive Protein 23.7 H* (<1.0) mg/dL NT-Pro-B Natriuret Pep (0-450) pg/mL Total Protein 6.9 (6.4-8.2) g/dl Albumin 2.6 L (3.4-5.0) g/dl Globulin 4.3 gm/dL Albumin/Globulin Ratio 0.6 L (1-2) Urine Color Yellow (Yellow) Urine Appearance Clear (Clear) Urine pH 5.5 (5.0-8.0) Ur Specific [place] 1.025 (1.005-1.030) Urine Protein 1+ H (Negative) Urine Glucose (UA) Negative (Negative) Urine Ketones Negative (Negative) Urine Occult Blood 2+ H (Negative) Urine Nitrite Positive H (Negative) Urine Bilirubin Negative (Negative) Urine Urobilinogen 0.2 (0.2-1.0) Ur Leukocyte Esterase Trace H (Negative) Urine RBC 0-5 (0-5) /hpf Urine WBC 10-20 H (0-5) /hpf Ur Epithelial Cells 0-5 (0-5) /hpf Urine Bacteria Many H (FEW) /hpf Urine Mucus Not seen (FEW) /hpf 11/04/18 11/04/18 Range/Units 10:11 10:11 WBC (3.98-10.04) K/mm3 RBC (3.98-5.22) M/mm3 Hgb (11.2-15.7) gm/L Hct (34.1-44.9) % MCV (79.4-94.8) fl MCH (25.6-32.2) pg MCHC (32.2-35.5) g/dl RDW Std Deviation (36.4-46.3) fL Plt Count (182-369) K/mm3 MPV (9.4-12.3) fl Neutrophils % (Manual) (40-60) % Band Neutrophils % (0-10) % Lymphocytes % (Manual) (20-40) % Atypical Lymphs % % Monocytes % (Manual) (2-10) % Eosinophils % (Manual) (0.7-5.8) % Basophils % (Manual) (0.1-1.2) Platelet Estimate RBC Morph Comment Sodium (136-145) mEq/L Potassium (3.5-5.1) mEq/L Chloride (98-107) mEq/L Carbon Dioxide (21-32) mEq/L Anion Gap (5-15) BUN (7-18) mg/dL Creatinine (0.55-1.02) mg/dL Est Cr Clr Drug Dosing mL/min Estimated GFR (MDRD) (>60) mL/min BUN/Creatinine Ratio (14-18) Glucose (83-115) mg/dL Lactic Acid 1.0 (0.4-2.0) mmol/L Calcium (8.5-10.1) mg/dL Magnesium (1.8-2.4) mg/dl Total Bilirubin (0.2-1.0) mg/dL AST (15-37) U/L ALT (14-59) U/L Alkaline Phosphatase (46-116) U/L Troponin I (0.00-0.056) ng/mL C-Reactive Protein (<1.0) mg/dL NT-Pro-B Natriuret Pep 1131 H (0-450) pg/mL Total Protein (6.4-8.2) g/dl Albumin (3.4-5.0) g/dl Globulin gm/dL Albumin/Globulin Ratio (1-2) Urine Color (Yellow) Urine Appearance (Clear) Urine pH (5.0-8.0) Ur Specific [place] (1.005-1.030) Urine Protein (Negative) Urine Glucose (UA) (Negative) Urine Ketones (Negative) Urine Occult Blood (Negative) Urine Nitrite (Negative) Urine Bilirubin (Negative) Urine Urobilinogen (0.2-1.0) Ur Leukocyte Esterase (Negative) Urine RBC (0-5) /hpf Urine WBC (0-5) /hpf Ur Epithelial Cells (0-5) /hpf Urine Bacteria (FEW) /hpf Urine Mucus (FEW) /hpf Meds: Medications Generic Name Dose Route Start Last Admin Trade Name Freq PRN Reason Stop Dose Admin Acetaminophen 650 mg 11/04/18 13:02 Tylenol PO 11/04/18 13:03 ONETIME ONE Ceftriaxone Sodium 2 gm/ 100 mls @ 200 mls/hr 11/04/18 11:30 11/04/18 11:36 Sodium Chloride IV 200 mls/hr Q24H [facility] Administration Dextrose/Sodium Chloride 1,000 mls @ 500 mls/hr 11/04/18 11:30 11/04/18 11:36 Dextrose 5%-Normal Saline IV 500 mls/hr ASDIRECTED [facility] Administration - Radiology Interpretation Free Text/Narrative:: 78-year-old female from [facility] presents for evaluation of fever. Apparently fever started yesterday. Unclear how much she's been able to eat or drink. There's been no report of nausea or vomiting or diarrhea. She is prone to urinary tract infections but she would not allow staff to get near enough to catheterize her collect a specimen. She has severe dementia with behavioral abnormalities in his proteinuria hitting out and or kicking. She apparently did take all of her medications this morning. In the ED she is aggressive and very unhappy to be here. Urinalysis has been obtained by catheterization. Rectal temperature was 99.9. She reportedly had Tylenol 650 mg at 0630 hrs. this morning. This means she is just about due for a another dose. Plan blood cultures 2 CBCs CMP troponin and CRP will be obtained. Lactic acid will be obtained as well. Examination doesn't show any other signs or sources of infection. Her lungs sound clear. We will not start an IV as she'll be prone to pull it out. If antibiotics are required we will give it either orally or IM. - Re-Assessments/Exams Free Text/Narrative Re-Assessment/Exam: 11/04/18 11:23Labs reveal an elevated white count at 19.86 with a left shift. Hemoglobin is 12.3 with hematocrit of 38.3. MCV is mildly elevated at 96.2. Sodium was 145 with a potassium of 3.2. Chloride is 106 with a bicarbonate of 26. And a gap is 16.2. BUN is 42 creatinine is 1.0. GFR is 54 BUN/creatinine ratio is elevated at 42 indicating volume depletion glucose is 106. Lactic acid is 1.0 calcium is 9.1. Magnesium is 2.2. Liver function is normal troponin I is less than 0.017. C-reactive protein is not yet available. BNP is slightly elevated at 1131. Total protein is 6.9 with an albumin fraction that is low at 2.6. Urinalysis obtained by catheterization shows 1+ proteinuria 2+ occult blood positive nitrates. Trace leukocyte esterase 0-5 RBCs per high-power field 10-20 WBCs per high-power field with many bacteria appreciated. Urine culture will be ordered. 11/04/18 11:25 will have an IV started although may have difficulty keeping it in as she is likely to represent out. We'll give her D5 normal saline at 500 mils an hour to rehydrate her and Rocephin 2 g IV for urinary tract infection. Since she can swallow tentatively will be to transferring her back to the retirement for continued use of antibiotics. 11/04/18 12:51 Of note her CRP was 23.7. His completed 2 g of IV Rocephin. Since she is DO NOT RESUSCITATE and DO NOT INTUBATE and has a bed in the retirement she will be discharged back to the retirement on Levaquin 500 mg once daily for another 9 days to clear up urinary tract infection. He can swallow and her pills are usually crushed to be given. She'll continue to use Tylenol 650 mg every 4 hours as needed for fever relief. Departure - Departure Time of Disposition: 12:56 Disposition: DC/Tfer to [facility] Condition: Poor Clinical Impression: Severe dementia, Urinary tract infection after immobility, Acute febrile illness - Discharge Information *PRESCRIPTION DRUG MONITORING PROGRAM REVIEWED*: Not Applicable *COPY OF PRESCRIPTION DRUG MONITORING REPORT IN PATIENT GAYATHRI: Not Applicable Prescriptions: Cefdinir [Omnicef 250 MG/5 ML Susp] 250 mg PO BID #100 ml Referrals: Cain Fair MD [Primary Care Provider] - Forms: ED Department Discharge - My Orders Last 24 Hours: My Active Orders 11/04/18 09:57 EKG Documentation Completion [RC] STAT Blood Culture x2 Reflex Set [OM.PC] Stat 11/04/18 10:11 CULTURE BLOOD [BC] Stat 11/04/18 10:16 CULTURE BLOOD [BC] Stat 11/04/18 11:26 CULTURE URINE [RM] Stat 11/04/18 11:30 Dextrose 5%-0.9% NaCl [Dextrose 5%-Normal Saline] 1,000 ml IV ASDIRECTED cefTRIAXone [Rocephin] 2 gm Sodium Chloride 0.9% [Normal Saline] 100 ml IV Q24H 11/04/18 13:02 Acetaminophen [Tylenol] 650 mg PO ONETIME ONE - Assessment/Plan Last 24 Hours: My Active Orders 11/04/18 09:57 EKG Documentation Completion [RC] STAT Blood Culture x2 Reflex Set [OM.PC] Stat 11/04/18 10:11 CULTURE BLOOD [BC] Stat 11/04/18 10:16 CULTURE BLOOD [BC] Stat 11/04/18 11:26 CULTURE URINE [RM] Stat 11/04/18 11:30 Dextrose 5%-0.9% NaCl [Dextrose 5%-Normal Saline] 1,000 ml IV ASDIRECTED cefTRIAXone [Rocephin] 2 gm Sodium Chloride 0.9% [Normal Saline] 100 ml IV Q24H 11/04/18 13:02 Acetaminophen [Tylenol] 650 mg PO ONETIME ONE
--- NOTE | 2018-11-04 11:09 | CR ---
Chest: Frontal view of the chest was obtained. Technologist's note: Combative Mild atelectasis is noted within both lung bases. Heart size is within normal limits. Tortuous thoracic aorta is seen. Scoliosis is noted within the spine. Impression: 1. Mild atelectasis within both lung bases. Other incidental findings. 2. Nothing acute is appreciated. Diagnostic code #2
[2018-11-04] MEDS ORDERED: Dextrose 5%-0.9% NaCl 1,000 ML IV SCH (11:30)
[2018-11-04] MEDS ORDERED: cefTRIAXone 2 GM in Sodium Chloride 0.9% 100 ML IV SCH (11:30)
[2018-11-04] MEDS ORDERED: Acetaminophen 325 MG/10.15 ML ML PO ONE (13:02)
== END 2018-11-04 13:33 ==
LOC: JD.ED 09:34
DX: N39.0 Urinary tract infection, site not specified (principal); F03.90 Unspecified dementia, unspecified severity, without behavioral disturbance, psychotic disturbance, mood disturbance, and anxiety; I10 Essential (primary) hypertension; Z88.2 Allergy status to sulfonamides; Z79.899 Other long term (current) drug therapy
CPT/HCPCS: 36415; 71045; 80053; 81001; 83605; 83735; 83880; 84484; 85007; 85027; 86140; 87040; 87086; 87088; 87186; 93005; 96361; 96365; 99285; A9270; J0696; J7030; J7042

== ENCOUNTER 2020-10-16 13:55 | Emergency (ER) | payer MEDICARE, MEDICAID ==
[2020-10-16] MEDS ORDERED: Sodium Chloride 0.9% 10 ML Syringe FLUSH PRN (14:47)
[2020-10-16] MEDS ORDERED: Sodium Chloride 0.9% 1,000 ML IV SCH (15:00)
--- NOTE | 2020-10-16 16:14 | EDM.PDOC ---
ED HPI GENERAL MEDICAL PROBLEM - General Chief Complaint: General Stated Complaint: HIP PAIN/LOW BP Time Seen by Provider: 10/16/20 14:24 Source of Information: Reports: Patient, [facility] Records, RN Notes Reviewed - History of Present Illness INITIAL COMMENTS - FREE TEXT/NARRATIVE: 80 yr old female is reported to have fallen at the [facility] this morning. Details of fall unknown. Had been complaining of some hip pain at the OH. She has severe dementia. Unable to give me or anyone else any meaningful hx here in the ED. She does not appear to be in pain. No known other injuries. Noted to have mild tachycardia at the OH and BP reported to be in the 90's. Hip Pain Score (Numeric/FACES): 5 - Related Data Allergies Allergy/AdvReac Type Severity Reaction Status Date / Time Sulfa (Sulfonamide Allergy Cannot Verified 10/16/20 14:27 Antibiotics) Remember Home Meds: Home Meds Acetaminophen [Tylenol] 650 mg PO TID 12/01/16 [History] Bisacodyl [Dulcolax] 10 mg PO DAILY PRN 12/01/16 [History] Capsaicin 1 applic TP BID 12/01/16 [History] Enalapril [Vasotec] 20 mg PO DAILY 12/01/16 [History] Hydrochlorothiazide 25 mg PO DAILY 12/01/16 [History] Potassium Chloride [Klor-Con M20] 20 meq PO DAILY 12/01/16 [History] Zinc Oxide 30 gm TP BID 12/01/16 [History] Donepezil HCl [Aricept] 10 mg PO BID 01/10/18 [History] LORazepam [Ativan] 1 mg PO BID PRN 01/10/18 [History] Nut Tx, Lact-Reduced, Iron [Boost VHC] 4 oz PO BID 01/10/18 [History] Sertraline HCl [Zoloft] 75 mg PO BEDTIME 01/10/18 [History] Cefdinir [Omnicef 250 MG/5 ML Susp] 250 mg PO BID #100 ml 11/04/18 [Rx] Diclofenac Sodium [Voltaren 1% Gel] 2 gm TOP Q6H PRN 11/04/18 [History] QUEtiapine [SEROquel] 25 mg PO BID 11/04/18 [History] QUEtiapine [SEROquel] 25 mg PO Q6H PRN 11/04/18 [History] Terbinafine [LamISIL AT 1% Crm] 1 applic TOP BID 11/04/18 [History] Past Medical History HEENT History: Reports: Other (See Below) Other HEENT History: wears glasses Cardiovascular History: Reports: Hypertension Musculoskeletal History: Reports: Osteoarthritis, Osteoporosis Other Musculoskeletal History: tinea pedis- bilateral feet; generalized muscle weakness; Neurological History: Reports: Alzheimers Disease Psychiatric History: Reports: Alzheimers Disease, Dementia - Infectious Disease History Infectious Disease History: Reports: Chicken Pox Social & Family History - Family History Family Medical History: No Pertinent Family History - Tobacco Use Tobacco Use Status *Q: Never Tobacco User - Caffeine Use Caffeine Use: Reports: None - Living Situation & Occupation Living situation: Reports: , Extended Care Facility (Lives at [facility]) Occupation: Retired ED ROS GENERAL - Review of Systems Review Of Systems: Unable To Obtain Reason Not Obtained: pt has severe dementia ED EXAM, GENERAL - Physical Exam Exam: See Below General Appearance: Alert, No Apparent Distress Eye Exam: Bilateral Eye: PERRL Ears: Normal External Exam Nose: Normal Inspection Throat/Mouth: Normal Inspection Head: Atraumatic Neck: Supple, Non-Tender Cardiovascular: Tachycardia GI/Abdominal: Soft, Non-Tender Extremities: Other (Mild tenderness R hip, she does allow me to help her move both legs/hips with minimal if any discomfort either hip) Neurological: Alert, Other (severe confusion, does not answer questions coherently, does not follow commands at time of exam) Skin Exam: Warm, Dry, Normal Color. No: Ecchymosis Course - Vital Signs Last Recorded V/S: Last Vital Signs Temp 97.2 F 10/16/20 14:22 Pulse 107 H 10/16/20 16:18 Resp 16 10/16/20 14:22 BP 112/72 10/16/20 16:18 Pulse Ox 94 L 10/16/20 14:22 - Orders/Labs/Meds Orders: Active Orders 24 hr Category Date Time Status EKG 12 Lead [EKG Documentation Completion] [RC] STAT Care 10/16/20 14:47 Active Peripheral IV Care [RC] . DIRECTED Care 10/16/20 14:48 Active Hip Min 2V or 3V w Pelvis Rt [CR] Stat Exams 10/16/20 14:48 Taken Sodium Chloride 0.9% [Normal Saline] 1,000 ml Med 10/16/20 15:00 Active IV ONETIME Sodium Chloride 0.9% [Saline Flush] Med 10/16/20 14:47 Active 10 ml FLUSH ASDIRECTED PRN Peripheral IV Insertion Adult [OM.PC] Stat Oth 10/16/20 14:47 Ordered Medication Orders Sodium Chloride (Normal Saline) 1,000 mls @ 999 mls/hr IV ONETIME ULISSES Last Admin: 10/16/20 15:02 Dose: 999 mls/hr Documented by: SMITH Sodium Chloride (Sodium Chloride 0.9% 10 Ml Syringe) 10 ml FLUSH ASDIRECTED PRN PRN Reason: Keep Vein Open Last Admin: 10/16/20 15:02 Dose: 10 ml Documented by: SMITH Labs: Laboratory Tests 10/16/20 10/16/20 Range/Units 15:00 15:00 WBC 11.95 H (3.98-10.04) K/mm3 RBC 4.17 (3.98-5.22) M/mm3 Hgb 13.3 (11.2-15.7) gm/dl Hct 42.8 (34.1-44.9) % MCV 102.6 H D (79.4-94.8) fl MCH 31.9 (25.6-32.2) pg MCHC 31.1 L (32.2-35.5) g/dl RDW Std Deviation 48.0 H (36.4-46.3) fL Plt Count 336 (182-369) K/mm3 MPV 11.5 (9.4-12.3) fl Neut % (Auto) 70.2 (34.0-71.1) % Lymph % (Auto) 17.9 L (19.3-51.7) % Hunt % (Auto) 8.5 (4.7-12.5) % Eos % (Auto) 2.8 (0.7-5.8) Baso % (Auto) 0.3 (0.1-1.2) % Neut # (Auto) 8.41 H (1.56-6.13) K/mm3 Lymph # (Auto) 2.14 (1.18-3.74) K/mm3 Hunt # (Auto) 1.01 H (0.24-0.36) K/mm3 Eos # (Auto) 0.33 (0.04-0.36) K/mm3 Baso # (Auto) 0.03 (0.01-0.08) K/mm3 Manual Slide Review Abnormal smear Sodium 153 H (136-145) mEq/L Potassium 4.1 (3.5-5.1) mEq/L Chloride 113 H (98-107) mEq/L Carbon Dioxide 27 (21-32) mEq/L Anion Gap 17.1 H (5-15) BUN 74 H D (7-18) mg/dL Creatinine 1.6 H (0.55-1.02) mg/dL Est Cr Clr Drug Dosing TNP Estimated GFR (MDRD) 31 (>60) mL/min BUN/Creatinine Ratio 46.3 H (14-18) Glucose 96 (83-115) mg/dL Calcium 9.1 (8.5-10.1) mg/dL Total Bilirubin 0.3 (0.2-1.0) mg/dL AST 30 (15-37) U/L ALT 92 H (14-59) U/L Alkaline Phosphatase 119 H (46-116) U/L Total Protein 7.5 (6.4-8.2) g/dl Albumin 3.3 L (3.4-5.0) g/dl Globulin 4.2 gm/dL Albumin/Globulin Ratio 0.8 L (1-2) Meds: Medications Generic Name Dose Route Start Last Admin Trade Name Freq PRN Reason Stop Dose Admin Sodium Chloride 1,000 mls @ 999 mls/hr 10/16/20 15:00 10/16/20 15:02 Normal Saline IV 999 mls/hr ONETIME ULISSES Administration Sodium Chloride 10 ml 10/16/20 14:47 10/16/20 15:02 Sodium Chloride 0.9% 10 Ml Syringe FLUSH 10 ml ASDIRECTED PRN Administration Keep Vein Open - Re-Assessments/Exams Free Text/Narrative Re-Assessment/Exam: 10/16/20 17:14 X rays of pelvis and hips does not show fx. Her BUN and creatnine are up from baseline of 1 yr ago, anion gap also mildly elevated so she is dehydrated likely contributing to her lower BP and tachycardia at the OH. Have given 1 liter NS, BP 120 systolic at time of discharge, heart rate down to 105. Discharge instr. as documented. Departure - Departure Time of Disposition: 16:54 Disposition: DC/Tfer to [facility] Condition: Fair Clinical Impression: Dehydration Fall Qualifiers: Encounter type: initial encounter Qualified Code(s): W19.XXXA - Unspecified fall, initial encounter Contusion of hip Qualifiers: Encounter type: initial encounter Laterality: right Qualified Code(s): S70.01XA - Contusion of right hip, initial encounter Dementia Qualifiers: Dementia type: Alzheimer's disease - Discharge Information Instructions: Contusion, Dementia, Dehydration, Adult Referrals: Cain Fair MD [Primary Care Provider] - Forms: ED Department Discharge Additional Instructions: X rays of pelvis and both hips show no fracture. Up with assistance only as tolerated. Her lab work did show evidence of dehydration from baseline studies 1 yr ago. Encourge water and other fluids. Call or see her provider as needed. Return to ED as needed. Sepsis Event Note (ED) - Evaluation Sepsis Screening Result: No Definite Risk - Focused Exam Vital Signs: Vital Signs Temp Pulse Resp BP Pulse Ox 10/16/20 16:18 107 H 112/72 10/16/20 14:22 97.2 F 115 H 16 88/58 L 94 L - My Orders Last 24 Hours: My Active Orders 10/16/20 14:47 EKG 12 Lead [EKG Documentation Completion] [RC] STAT Sodium Chloride 0.9% [Saline Flush] 10 ml FLUSH ASDIRECTED PRN Peripheral IV Insertion Adult [OM.PC] Stat 10/16/20 14:48 Peripheral IV Care [RC] . DIRECTED Hip Min 2V or 3V w Pelvis Rt [CR] Stat 10/16/20 15:00 Sodium Chloride 0.9% [Normal Saline] 1,000 ml IV ONETIME - Assessment/Plan Last 24 Hours: My Active Orders 10/16/20 14:47 EKG 12 Lead [EKG Documentation Completion] [RC] STAT Sodium Chloride 0.9% [Saline Flush] 10 ml FLUSH ASDIRECTED PRN Peripheral IV Insertion Adult [OM.PC] Stat 10/16/20 14:48 Peripheral IV Care [RC] . DIRECTED Hip Min 2V or 3V w Pelvis Rt [CR] Stat 10/16/20 15:00 Sodium Chloride 0.9% [Normal Saline] 1,000 ml IV ONETIME
[2020-10-16 18:05] VITALS: BP 119/88; PULSE 108
--- NOTE | 2020-10-16 18:54 | CR ---
Pelvis and right hip: AP view of the pelvis is obtained as well as AP view of the right hip and frog-leg lateral view of the right hip. Mild joint space narrowing is seen medially within the left hip. Joint space within the right hip is fairly well preserved. Osteopenia is seen. Slight degenerative change is seen with the left sacroiliac joint. Bony structures are osteopenic. No acute fracture or dislocation is appreciated. Impression: 1. Degenerative change with osteopenia as noted above. 2. No acute fracture or subluxation is seen. Diagnostic code #2
== END 2020-10-16 17:40 ==
LOC: JD.ED 13:55
DX: S70.01XA Contusion of right hip, initial encounter (principal); G30.9 Alzheimer's disease, unspecified; F02.80 Dementia in other diseases classified elsewhere, unspecified severity, without behavioral disturbance, psychotic disturbance, mood disturbance, and anxiety; E86.0 Dehydration; I10 Essential (primary) hypertension; Z88.2 Allergy status to sulfonamides; Z79.899 Other long term (current) drug therapy; W19.XXXA Unspecified fall, initial encounter
CPT/HCPCS: 36415; 73502; 80053; 85025; 93005; 99285; J7030; 99283

== ENCOUNTER 2021-02-23 14:16 | Emergency (ER) | payer MEDICARE, MEDICAID ==
--- NOTE | 2021-02-23 15:50 | EDM.PDOC ---
<Carlos Eduardo Wu - Last Filed: 02/23/21 19:43> ED HPI GENERAL MEDICAL PROBLEM - General Chief Complaint: General Stated Complaint: [facility] Time Seen by Provider: 02/23/21 15:48 - History of Present Illness INITIAL COMMENTS - FREE TEXT/NARRATIVE: 80-year-old female sent over to the emergency room from the [facility] with an uncertain history. The only history we have is her blood pressure was low her pulse was high and she is sleepier than normal. Patient is unable to give us a history she is a little combative and has advanced dementia. - Related Data Allergies Allergy/AdvReac Type Severity Reaction Status Date / Time Sulfa (Sulfonamide Allergy Cannot Verified 02/23/21 14:35 Antibiotics) Remember Home Meds: Home Meds Acetaminophen [Tylenol] 650 mg PO TID 12/01/16 [History] Bisacodyl [Dulcolax] 10 mg PO DAILY PRN 12/01/16 [History] Capsaicin 1 applic TP BID 12/01/16 [History] Enalapril [Vasotec] 20 mg PO DAILY 12/01/16 [History] Hydrochlorothiazide 25 mg PO DAILY 12/01/16 [History] Potassium Chloride [Klor-Con M20] 20 meq PO DAILY 12/01/16 [History] Zinc Oxide 30 gm TP BID 12/01/16 [History] Donepezil HCl [Aricept] 10 mg PO BID 01/10/18 [History] LORazepam [Ativan] 1 mg PO BID PRN 01/10/18 [History] Nut Tx, Lact-Reduced, Iron [Boost VHC] 4 oz PO BID 01/10/18 [History] Sertraline HCl [Zoloft] 75 mg PO BEDTIME 01/10/18 [History] Cefdinir [Omnicef 250 MG/5 ML Susp] 250 mg PO BID #100 ml 11/04/18 [Rx] Diclofenac Sodium [Voltaren 1% Gel] 2 gm TOP Q6H PRN 11/04/18 [History] QUEtiapine [SEROquel] 25 mg PO BID 11/04/18 [History] QUEtiapine [SEROquel] 25 mg PO Q6H PRN 11/04/18 [History] Terbinafine [LamISIL AT 1% Crm] 1 applic TOP BID 11/04/18 [History] Cefdinir [Omnicef 250 MG/5 ML Susp] 300 mg PO Q12H 10 Days ml 02/24/21 [Rx] Past Medical History HEENT History: Reports: Other (See Below) Other HEENT History: wears glasses Cardiovascular History: Reports: Hypertension Musculoskeletal History: Reports: Osteoarthritis, Osteoporosis Other Musculoskeletal History: tinea pedis- bilateral feet; generalized muscle weakness; Neurological History: Reports: Alzheimers Disease Psychiatric History: Reports: Alzheimers Disease, Dementia - Infectious Disease History Infectious Disease History: Reports: Chicken Pox Social & Family History - Family History Family Medical History: No Pertinent Family History - Caffeine Use Caffeine Use: Reports: None - Living Situation & Occupation Living situation: Reports: , Extended Care Facility (Lives at [facility]) Occupation: Retired ED ROS GENERAL - Review of Systems Review Of Systems: See Below Reason Not Obtained: Unable to obtain because of her baseline mental status ED EXAM, GENERAL - Physical Exam Exam: See Below Exam Limited By: Other (The patient will take swings that you) General Appearance: Alert Eye Exam: Bilateral Eye: Normal Inspection Ears: Normal External Exam, Normal Canal, Hearing Grossly Normal, Normal TMs Nose: Normal Inspection, Normal Mucosa, No Blood Throat/Mouth: Normal Inspection, Normal Lips, Normal Oropharynx, No Airway Compromise. No: Normal Teeth (Dentures not in) Head: Atraumatic, Normocephalic Neck: Normal Inspection, Supple, Non-Tender, Full Range of Motion. No: Lymphadenopathy (L), Lymphadenopathy (R) Respiratory/Chest: No Respiratory Distress, Lungs Clear, Normal Breath Sounds Cardiovascular: Regular Rate, Rhythm, No Edema, No Murmur GI/Abdominal: Normal Bowel Sounds, Soft, Non-Tender Back Exam: Normal Inspection, Full Range of Motion. No: CVA Tenderness (L), CVA Tenderness (R) Extremities: Normal Inspection, Normal Range of Motion, Non-Tender Neurological: Other (Hard to assess she does not speak clear words and is combative) Skin Exam: Warm, Dry, Intact #1 Interpretation EKG Date: 02/23/21 Rhythm: Other (Sinus tach) Rate (Beats/Min): 119 [place]: Normal P-Wave: Present QRS: Normal ST-T: Other (Nonspecific nondiagnostic ST changes most likely related to artifact and tachycardia) QT: Normal Comparison: No Change (Significant change from October 16, 2020) EKG Interpretation Comments: Abnormal EKG Course - Re-Assessments/Exams Free Text/Narrative Re-Assessment/Exam: 02/23/21 19:06 Patient has received over a liter of LR thus far her blood pressure is improving pulse is starting to come down not to the ideal range yet. Her lactic acid is 2.6. We will continue to bolus towards 30 cc/kg. Urinalysis is weakly suggestive of infectious process chest x-ray looks good I do not believe the patient would hold still for a head CT and there is no history of head trauma. At this point our hospitalist is willing to accept the patient however we have no beds to put her in we will trying to wean her up in the emergency room with the hopes of getting her back to the [facility] soon. At this point it is change of shift further care and disposition per Dr. Kohler. Departure - Departure Disposition: DC/Tfer to [facility] Clinical Impression: UTI (urinary tract infection) - Discharge Information Prescriptions: Cefdinir [Omnicef 250 MG/5 ML Susp] 300 mg PO Q12H 10 Days ml Instructions: Urinary Tract Infection, Adult Referrals: Cain Fair MD [Primary Care Provider] - Forms: ED Department Discharge Additional Instructions: Return if condition worsens May resume general activity and regular diet as tolerated Continue usual medications Take CEFDINIR antibiotic as prescribed, until completed; do not administer this medication within 2 hours of iron supplements Follow-up with primary care provider is recommended within 3-5 days Sepsis Event Note (ED) - Evaluation Sepsis Screening Result: No Definite Risk <Alonso Kohler - Last Filed: 02/25/21 01:04> Course - Vital Signs Last Recorded V/S: Last Vital Signs Temp 36.1 C 02/23/21 14:29 Pulse 95 02/24/21 02:00 Resp 16 02/24/21 02:00 BP 101/68 02/24/21 02:00 Pulse Ox 94 L 02/24/21 02:00 - Orders/Labs/Meds Labs: Laboratory Tests 02/23/21 02/23/21 02/23/21 Range/Units 16:32 16:32 16:32 WBC 18.09 H (3.98-10.04) K/mm3 RBC 4.73 (3.98-5.22) M/mm3 Hgb 14.9 D (11.2-15.7) gm/dl Hct 46.0 H (34.1-44.9) % MCV 97.3 H D (79.4-94.8) fl MCH 31.5 (25.6-32.2) pg MCHC 32.4 (32.2-35.5) g/dl RDW Std Deviation 44.2 (36.4-46.3) fL Plt Count 303 (182-369) K/mm3 MPV 11.4 (9.4-12.3) fl Neut % (Auto) 76.2 H (34.0-71.1) % Lymph % (Auto) 11.4 L (19.3-51.7) % Terry % (Auto) 11.9 (4.7-12.5) % Eos % (Auto) 0.3 L (0.7-5.8) Baso % (Auto) 0.1 (0.1-1.2) % Neut # (Auto) 13.77 H (1.56-6.13) K/mm3 Lymph # (Auto) 2.07 (1.18-3.74) K/mm3 Terry # (Auto) 2.15 H (0.24-0.36) K/mm3 Eos # (Auto) 0.06 (0.04-0.36) K/mm3 Baso # (Auto) 0.02 (0.01-0.08) K/mm3 Manual Slide Review Abnormal smear Sodium 147 H (136-145) mEq/L Potassium 3.7 (3.5-5.1) mEq/L Chloride 108 H (98-107) mEq/L Carbon Dioxide 29 (21-32) mEq/L Anion Gap 13.7 (5-15) BUN 46 H D (7-18) mg/dL Creatinine 1.6 H (0.55-1.02) mg/dL Est Cr Clr Drug Dosing TNP Estimated GFR (MDRD) 31 (>60) mL/min BUN/Creatinine Ratio 28.8 H (14-18) Glucose 103 H (70-99) mg/dL Lactic Acid 2.6 H* (0.4-2.0) mmol/L Calcium 9.4 (8.5-10.1) mg/dL Total Bilirubin 0.7 (0.2-1.0) mg/dL AST 51 H (15-37) U/L ALT 99 H (14-59) U/L Alkaline Phosphatase 77 (46-116) U/L Troponin I < 0.017 (0.00-0.056) ng/mL Total Protein 7.3 (6.4-8.2) g/dl Albumin 3.3 L (3.4-5.0) g/dl Globulin 4.0 gm/dL Albumin/Globulin Ratio 0.8 L (1-2) Urine Color (Yellow) Urine Appearance (Clear) Urine pH (5.0-8.0) Ur Specific Bruno (1.005-1.030) Urine Protein (Negative) Urine Glucose (UA) (Negative) Urine Ketones (Negative) Urine Occult Blood (Negative) Urine Nitrite (Negative) Urine Bilirubin (Negative) Urine Urobilinogen (0.2-1.0) Ur Leukocyte Esterase (Negative) U Hyaline Cast (Auto) (0-5) /lpf Urine RBC (0-5) /hpf Urine WBC (0-5) /hpf Ur Squamous Epith Cells (0-5) /hpf Urine Bacteria (FEW) /hpf Urine Mucus (FEW) /hpf SARS-CoV-2 RNA (OCTAVIO) (NEGATIVE) 02/23/21 02/23/21 02/23/21 Range/Units 16:45 18:00 19:21 WBC (3.98-10.04) K/mm3 RBC (3.98-5.22) M/mm3 Hgb (11.2-15.7) gm/dl Hct (34.1-44.9) % MCV (79.4-94.8) fl MCH (25.6-32.2) pg MCHC (32.2-35.5) g/dl RDW Std Deviation (36.4-46.3) fL Plt Count (182-369) K/mm3 MPV (9.4-12.3) fl Neut % (Auto) (34.0-71.1) % Lymph % (Auto) (19.3-51.7) % Terry % (Auto) (4.7-12.5) % Eos % (Auto) (0.7-5.8) Baso % (Auto) (0.1-1.2) % Neut # (Auto) (1.56-6.13) K/mm3 Lymph # (Auto) (1.18-3.74) K/mm3 Terry # (Auto) (0.24-0.36) K/mm3 Eos # (Auto) (0.04-0.36) K/mm3 Baso # (Auto) (0.01-0.08) K/mm3 Manual Slide Review Sodium (136-145) mEq/L Potassium (3.5-5.1) mEq/L Chloride (98-107) mEq/L Carbon Dioxide (21-32) mEq/L Anion Gap (5-15) BUN (7-18) mg/dL Creatinine (0.55-1.02) mg/dL Est Cr Clr Drug Dosing Estimated GFR (MDRD) (>60) mL/min BUN/Creatinine Ratio (14-18) Glucose (70-99) mg/dL Lactic Acid 3.0 H* (0.4-2.0) mmol/L Calcium (8.5-10.1) mg/dL Total Bilirubin (0.2-1.0) mg/dL AST (15-37) U/L ALT (14-59) U/L Alkaline Phosphatase (46-116) U/L Troponin I (0.00-0.056) ng/mL Total Protein (6.4-8.2) g/dl Albumin (3.4-5.0) g/dl Globulin gm/dL Albumin/Globulin Ratio (1-2) Urine Color Yellow (Yellow) Urine Appearance Cloudy H (Clear) Urine pH 6.0 (5.0-8.0) Ur Specific Bruno 1.025 (1.005-1.030) Urine Protein Trace H (Negative) Urine Glucose (UA) Negative (Negative) Urine Ketones 1+ H (Negative) Urine Occult Blood Negative (Negative) Urine Nitrite Negative (Negative) Urine Bilirubin Negative (Negative) Urine Urobilinogen 0.2 (0.2-1.0) Ur Leukocyte Esterase Trace H (Negative) U Hyaline Cast (Auto) 0-5 (0-5) /lpf Urine RBC 0-5 (0-5) /hpf Urine WBC 5-10 H (0-5) /hpf Ur Squamous Epith Cells 0-5 (0-5) /hpf Urine Bacteria Many H (FEW) /hpf Urine Mucus Not seen (FEW) /hpf SARS-CoV-2 RNA (OCTAVIO) Negative (NEGATIVE) 02/23/21 Range/Units 22:35 WBC (3.98-10.04) K/mm3 RBC (3.98-5.22) M/mm3 Hgb (11.2-15.7) gm/dl Hct (34.1-44.9) % MCV (79.4-94.8) fl MCH (25.6-32.2) pg MCHC (32.2-35.5) g/dl RDW Std Deviation (36.4-46.3) fL Plt Count (182-369) K/mm3 MPV (9.4-12.3) fl Neut % (Auto) (34.0-71.1) % Lymph % (Auto) (19.3-51.7) % Terry % (Auto) (4.7-12.5) % Eos % (Auto) (0.7-5.8) Baso % (Auto) (0.1-1.2) % Neut # (Auto) (1.56-6.13) K/mm3 Lymph # (Auto) (1.18-3.74) K/mm3 Terry # (Auto) (0.24-0.36) K/mm3 Eos # (Auto) (0.04-0.36) K/mm3 Baso # (Auto) (0.01-0.08) K/mm3 Manual Slide Review Sodium (136-145) mEq/L Potassium (3.5-5.1) mEq/L Chloride (98-107) mEq/L Carbon Dioxide (21-32) mEq/L Anion Gap (5-15) BUN (7-18) mg/dL Creatinine (0.55-1.02) mg/dL Est Cr Clr Drug Dosing Estimated GFR (MDRD) (>60) mL/min BUN/Creatinine Ratio (14-18) Glucose (70-99) mg/dL Lactic Acid 1.5 (0.4-2.0) mmol/L Calcium (8.5-10.1) mg/dL Total Bilirubin (0.2-1.0) mg/dL AST (15-37) U/L ALT (14-59) U/L Alkaline Phosphatase (46-116) U/L Troponin I (0.00-0.056) ng/mL Total Protein (6.4-8.2) g/dl Albumin (3.4-5.0) g/dl Globulin gm/dL Albumin/Globulin Ratio (1-2) Urine Color (Yellow) Urine Appearance (Clear) Urine pH (5.0-8.0) Ur Specific Bruno (1.005-1.030) Urine Protein (Negative) Urine Glucose (UA) (Negative) Urine Ketones (Negative) Urine Occult Blood (Negative) Urine Nitrite (Negative) Urine Bilirubin (Negative) Urine Urobilinogen (0.2-1.0) Ur Leukocyte Esterase (Negative) U Hyaline Cast (Auto) (0-5) /lpf Urine RBC (0-5) /hpf Urine WBC (0-5) /hpf Ur Squamous Epith Cells (0-5) /hpf Urine Bacteria (FEW) /hpf Urine Mucus (FEW) /hpf SARS-CoV-2 RNA (OCTAVIO) (NEGATIVE) Meds: Medications Discontinued Medications Generic Name Dose Route Start Last Admin Trade Name Mal PRN Reason Stop Dose Admin Lactated Ringer's 1,000 mls @ 999 mls/hr 02/23/21 16:12 02/23/21 16:50 Ringers, Lactated IV 02/23/21 17:12 999 mls/hr .BOLUS ONE Administration Lactated Ringer's 500 mls @ 999 mls/hr 02/23/21 17:54 02/23/21 18:07 Ringers, Lactated IV 02/23/21 18:24 999 mls/hr .BOLUS ONE Administration Lactated Ringer's 1,000 mls @ 150 mls/hr 02/23/21 18:00 02/23/21 22:40 Ringers, Lactated IV 150 mls/hr ASDIRECTED ULISSES Administration Ceftriaxone Sodium 1 gm/ 100 mls @ 200 mls/hr 02/23/21 18:15 02/23/21 18:41 Sodium Chloride IV 200 mls/hr Q24H ULISSES Administration Lactated Ringer's 1,000 mls @ 500 mls/hr 02/23/21 20:00 02/23/21 20:10 Ringers, Lactated IV 02/23/21 21:59 500 mls/hr ASDIRECTED ULISSES Administration Quetiapine Fumarate 50 mg 02/23/21 19:32 02/23/21 19:41 Quetiapine 25 Mg Tab PO 02/23/21 19:33 50 mg ONETIME ONE Administration - Re-Assessments/Exams Free Text/Narrative Re-Assessment/Exam: 02/24/21 01:17 Care of patient assumed from Dr. Wu pending re-evaluation and further disposition Serial lactic acid measurement per sepsis protocol showed increase from 2.6 to 3.0 Patient was given additional IV fluid therapy with subsequent normalization of lactic acid There was no recurrence of hypotension or tachycardia during ED care by parts data writer There was no definite indication for hospital admission Patient was felt to be stable for return to long-term care facility and primary care follow-up Presumptive treatment for suspected urinary tract infection was prescribed Departure - Departure Time of Disposition: 01:21 - Discharge Information *PRESCRIPTION DRUG MONITORING PROGRAM REVIEWED*: Not Applicable *COPY OF PRESCRIPTION DRUG MONITORING REPORT IN PATIENT GAYATHRI: Not Applicable
[2021-02-23] MEDS ORDERED: Lactated Ringers 1,000 ML IV ONE (16:12)
--- NOTE | 2021-02-23 17:35 | CR ---
Chest: Portable view of the chest was obtained. Comparison: Prior chest x-ray of 11/04/18. Slight scarring or atelectasis is seen within the left and right lung base. Lungs otherwise are clear. Heart size and mediastinum are within normal limits. Slight tortuous thoracic aorta is noted. Bony structures show nothing acute. Impression: 1. Minimal scarring or bibasilar atelectasis. 2. Nothing acute is otherwise seen on portable chest x-ray. Diagnostic code #2
[2021-02-23] MEDS ORDERED: Lactated Ringers 500 ML IV ONE (17:54)
[2021-02-23] MEDS ORDERED: Lactated Ringers 1,000 ML IV SCH ×2 (18:00→20:00)
[2021-02-23] MEDS ORDERED: cefTRIAXone 1 GM in Sodium Chloride 0.9% 100 ML IV SCH (18:15)
[2021-02-23] MEDS ORDERED: QUEtiapine 25 MG Tab PO ONE (19:32)
[2021-02-24 02:24] VITALS: BP 101/68; PULSE 95
== END 2021-02-24 02:10 ==
LOC: JD.ED 14:16
DX: N39.0 Urinary tract infection, site not specified (principal); I10 Essential (primary) hypertension; M19.90 Unspecified osteoarthritis, unspecified site; G30.9 Alzheimer's disease, unspecified; F02.80 Dementia in other diseases classified elsewhere, unspecified severity, without behavioral disturbance, psychotic disturbance, mood disturbance, and anxiety; R00.0 Tachycardia, unspecified; Z88.2 Allergy status to sulfonamides; Z79.899 Other long term (current) drug therapy; Z20.822 Contact with and (suspected) exposure to COVID-19
CPT/HCPCS: 36415; 71045; 80053; 81001; 83605; 84484; 85025; 87040; 87086; 87088; 87186; 93005; 96365; 99285; A9270; J0696; J7120; U0002; 87077; 93010; 99283